=== PATIENT | female | born 1980 | race Caucasian/White ===

== ENCOUNTER 2019-12-14 19:00 | Outpatient (CLI) | payer OTHER | END 2019-12-14 19:01 | disposition home or self-care (01) | LOC: SLEEPLAB 19:00 | PROVIDERS: ATTEND Student in an Organized Health Care Education/Training Program | DX: G47.33 Obstructive sleep apnea (adult) (pediatric) (principal); R53.83 Other fatigue; G47.9 Sleep disorder, unspecified; K21.9 Gastro-esophageal reflux disease without esophagitis; R06.83 Snoring; G47.00 Insomnia, unspecified; G47.10 Hypersomnia, unspecified | CPT/HCPCS: 95810 ==

== ENCOUNTER 2020-02-01 19:00 | Outpatient (CLI) | payer OTHER | END 2020-02-01 19:01 | disposition home or self-care (01) | LOC: SLEEPLAB 19:00 | PROVIDERS: ATTEND Student in an Organized Health Care Education/Training Program | DX: G47.33 Obstructive sleep apnea (adult) (pediatric) (principal); G47.9 Sleep disorder, unspecified; R53.83 Other fatigue; R51.9 Headache, unspecified; R06.83 Snoring; K21.9 Gastro-esophageal reflux disease without esophagitis; G47.10 Hypersomnia, unspecified; E66.9 Obesity, unspecified; Z68.33 Body mass index [BMI] 33.0-33.9, adult | CPT/HCPCS: 95811 ==

== ENCOUNTER 2021-01-06 08:01 | Inpatient (IN) | payer OTHER ==
[2021-01-06 08:54] LABS: #Basophils 0.1 thou/uL (0.0-0.2); #Lymphocytes 1.4 thou/uL (1.20-3.40); #Monocytes 0.9 thou/uL (0.11-0.59); #Neutrophils 6.9 thou/uL (1.40-6.50); %Eosinophils 0.2 % (0.0-10.0); %Lymphocytes 14.8 % (21.0-51.0); %Monocytes 9.2 % (0.0-10.0); %Neutrophils 74.9 % (42.0-75.0); Hemoglobin 13.7 g/dL (12.0-16.0); Mean Corpuscular HGB CONC 33.7 g/dL (32.0-36.0); Mean Corpuscular Hemoglobin 31.2 pg (27.0-31.0); Mean Corpuscular Volume 92.4 fL (78.0-98.0); Mean Platelet Volume 7.9 fL (7.4-10.4); Platelet Count 244 thou/uL (130-400); RBC Distribution Width 12.4 % (11.5-14.5); Red Blood Cell (RBC) Count 4.39 mill/uL (4.20-5.40); White Blood Cell (WBC) Count 9.3 thou/uL (4.8-10.8)
[2021-01-06] MEDS ORDERED: Ketorolac Tromethamine 30 MG/ML VIAL ONE (09:09)
[2021-01-06] MEDS ORDERED: Acetaminophen 500 MG TAB ONE (09:09)
[2021-01-06 09:17] LABS: ALT (SGPT) 29 U/L (8-55); AST (SGOT) 36 U/L (5-34); Albumin 3.7 g/dL (3.5-5.0); Alkaline Phosphatase 95 U/L (40-110); Anion Gap 17 mmol/L (10-20); BUN (Urea Nitrogen) 10 mg/dL (7.0-18.7); Bilirubin, Total 0.6 mg/dL (0.2-1.2); Calc. Creatinine Clearance 0 mL/min (70-130); Calcium 8.6 mg/dL (7.8-10.44); Carbon Dioxide 20 mmol/L (22-29); Chloride 93 mmol/L (98-107); Globulin 3.7 g/dL (2.4-3.5); Glucose 115 mg/dL (70-105); Protein, Total 7.4 g/dL (6.0-8.3); Sodium 126 mmol/L (136-145)
[2021-01-06] MEDS ORDERED: Iopamidol-370 76% 500 ML 1 ML ONE (09:32)
[2021-01-06 09:37] LABS: CKMB 1.7 ng/mL (0-6.6)
[2021-01-06] MEDS ORDERED: Sodium Chloride 0.9% 0 ML ONE (10:30)
[2021-01-06] MEDS ORDERED: Azithromycin 500 MG VIAL ONE (10:30)
[2021-01-06 11:07] LABS: Bacteria/HPF None Seen HPF (None Seen); Bilirubin Negative (Negative); Blood, Urine 1+ (Negative); Clarity Turbid (Clear); Glucose, Urine (Dipstick) Normal (Negative); Ketone, Urine 20 mg/dL (Negative); Leukocyte Negative Leu/uL (Negative); Mucous/LPF 1+ LPF (<2+); Nitrite Negative (Negative); Protein, Urine (Dipstick) 200 mg/dL (Neg-Trace); RBC/HPF 0-3 HPF (0-3); Specific Gravity, Urine 1.032 (1.002-1.036); Squamous Epithelial 0-3 HPF (0-3); Urobilinogen 3 mg/dL (Less than 2)
[2021-01-06 13:15] LABS: SARS-CoV-2 NAA Rapid Test Not Detected (NotDetected)
[2021-01-06] MEDS ORDERED: Senokot S 8.6-50 MG TAB PO PRN (13:17)
[2021-01-06] MEDS ORDERED: Bisacodyl 5 MG TAB PO PRN (13:17)
[2021-01-06] MEDS ORDERED: Aspirin 325 MG TAB PO SCH (13:30)
[2021-01-06] MEDS ORDERED: Sodium Chloride 0.9% 1,000 ML IV SCH (13:30)
[2021-01-06 14:39] LABS: Troponin I 0.026 ng/mL (< 0.028)
[2021-01-06] MEDS ORDERED: Acetaminophen 325 MG TAB ONE (15:45)
[2021-01-06 16:45] VITALS: BMI 32.7
[2021-01-06] MEDS: cefTRIAXone\\ROCEPHIN 1 GM in Sodium Chloride 0.9% 100 ML IVPB SCH (17:12)
[2021-01-06 17:34] LABS: Troponin I 0.039 ng/mL (< 0.028)
[2021-01-06 17:46] LABS: Anion Gap 17 mmol/L (10-20); BUN (Urea Nitrogen) 8 mg/dL (7.0-18.7); Calc. Creatinine Clearance 141 mL/min (70-130); Calcium 7.5 mg/dL (7.8-10.44); Carbon Dioxide 17 mmol/L (22-29); Chloride 98 mmol/L (98-107); Glucose 110 mg/dL (70-105); Potassium 3.4 mmol/L (3.5-5.1); Sodium 129 mmol/L (136-145)
[2021-01-06] MEDS: Acetaminophen 325 MG TAB PO PRN (20:36)
[2021-01-06] MEDS: Ondansetron PF 4 MG/2 ML Vial IVP PRN (20:36)
[2021-01-06] MEDS: Atorvastatin Calcium 40 MG TAB PO SCH (20:40)
[2021-01-07] MEDS: Melatonin 3 MG TAB PO PRN (01:34)
[2021-01-07] MEDS: Albuterol Sulfate 2.5 mg/3 ml Neb NEB PRN (02:54)
[2021-01-07] MEDS ORDERED: Calcium Carbonate 500 MG ChewTAB PO PRN (04:10)
[2021-01-07] MEDS: Acetaminophen 325 MG TAB PO PRN ×2 (04:36→14:24)
[2021-01-07 04:59] LABS: Hemoglobin 12.3 g/dL (12.0-16.0); Mean Corpuscular HGB CONC 33.5 g/dL (32.0-36.0); Mean Corpuscular Hemoglobin 30.9 pg (27.0-31.0); Mean Corpuscular Volume 92.3 fL (78.0-98.0); Platelet Count 237 thou/uL (130-400); RBC Distribution Width 12.7 % (11.5-14.5); Red Blood Cell (RBC) Count 3.98 mill/uL (4.20-5.40); White Blood Cell (WBC) Count 7.3 thou/uL (4.8-10.8)
[2021-01-07 05:00] LABS: Hemoglobin A1c 5.2 % (4.0-6.0)
[2021-01-07 05:06] LABS: ALT (SGPT) 25 U/L (8-55); AST (SGOT) 31 U/L (5-34); Alkaline Phosphatase 84 U/L (40-110); Anion Gap 14 mmol/L (10-20); BUN (Urea Nitrogen) 4 mg/dL (7.0-18.7); Bilirubin, Total 0.4 mg/dL (0.2-1.2); Calc. Creatinine Clearance 150 mL/min (70-130); Calcium 7.8 mg/dL (7.8-10.44); Carbon Dioxide 19 mmol/L (22-29); Cardiac Risk 4.7 (Less than 4.5); Chloride 101 mmol/L (98-107); Cholesterol 103 mg/dl (< 200 Desired); Globulin 2.9 g/dL (2.4-3.5); Glucose 126 mg/dL (70-105); HDL Cholesterol 22 mg/dL (>60 Neg Risk); LDL Cholesterol, Calculated 61 mg/dL; Potassium 3.7 mmol/L (3.5-5.1); Protein, Total 5.9 g/dL (6.0-8.3); Sodium 130 mmol/L (136-145); Triglycerides 101 mg/dL (Less than 150)
[2021-01-07 06:17] LABS: Band 18 % (5-11); Lymphocytes 13 % (21-51); MDiff Complete? YES; Monocytes 6 % (0-10); Neutrophil 63 % (42-75); Toxic Granulation SLIGHT; Vacuoles SLIGHT
[2021-01-07] MEDS ORDERED: Enoxaparin Sodium 40 MG/0.4 ML SYRINGE SC SCH (09:00)
[2021-01-07] MEDS: Aspirin Chewable 81 MG TAB PO SCH (09:08)
[2021-01-07] MEDS: Enoxaparin Sodium 40 MG/0.4 ML SYRINGE SC SCH (09:08)
[2021-01-07] MEDS: Azithromycin 500 MG in Sodium Chloride 0.9% 250 ML 250 ML IVPB SCH (11:31)
[2021-01-07] MEDS: cefTRIAXone\\ROCEPHIN 1 GM in Sodium Chloride 0.9% 100 ML IVPB SCH (14:24)
[2021-01-07] MEDS ORDERED: Loperamide HCl 2 MG CAP PO PRN (16:41)
[2021-01-07] MEDS: lamoTRIgine 100 MG TAB PO SCH (20:08)
[2021-01-07] MEDS: FLUoxetine HCl 20 MG CAP PO SCH (20:08)
[2021-01-07] MEDS: Atorvastatin Calcium 40 MG TAB PO SCH (20:09)
[2021-01-08 04:34] LABS: #Eosinphils 0.1 thou/uL (0.0-0.7); #Lymphocytes 1.3 thou/uL (1.20-3.40); #Monocytes 0.6 thou/uL (0.11-0.59); %Basophils 0.7 % (0.0-1.0); %Eosinophils 1.8 % (0.0-10.0); %Lymphocytes 25.2 % (21.0-51.0); %Monocytes 12.3 % (0.0-10.0); %Neutrophils 60.1 % (42.0-75.0); Hemoglobin 11.4 g/dL (12.0-16.0); Mean Corpuscular HGB CONC 32.7 g/dL (32.0-36.0); Mean Corpuscular Hemoglobin 30.2 pg (27.0-31.0); Mean Corpuscular Volume 92.3 fL (78.0-98.0); Mean Platelet Volume 7.7 fL (7.4-10.4); Platelet Count 288 thou/uL (130-400); RBC Distribution Width 12.6 % (11.5-14.5); Red Blood Cell (RBC) Count 3.79 mill/uL (4.20-5.40)
[2021-01-08 04:54] LABS: Anion Gap 10 mmol/L (10-20); BUN (Urea Nitrogen) 4 mg/dL (7.0-18.7); Calc. Creatinine Clearance 155 mL/min (70-130); Calcium 8.1 mg/dL (7.8-10.44); Carbon Dioxide 28 mmol/L (22-29); Chloride 100 mmol/L (98-107); Glucose 103 mg/dL (70-105); Potassium 3.6 mmol/L (3.5-5.1); Sodium 134 mmol/L (136-145)
[2021-01-08] MEDS: Aspirin Chewable 81 MG TAB PO SCH (09:06)
[2021-01-08] MEDS: Acetaminophen 325 MG TAB PO PRN ×2 (09:06→14:45)
[2021-01-08] MEDS: Enoxaparin Sodium 40 MG/0.4 ML SYRINGE SC SCH (09:06)
[2021-01-08] MEDS: Azithromycin 500 MG in Sodium Chloride 0.9% 250 ML 250 ML IVPB SCH (11:50)
[2021-01-08] MEDS: cefTRIAXone\\ROCEPHIN 1 GM in Sodium Chloride 0.9% 100 ML IVPB SCH (14:44)
[2021-01-08] MEDS: Atorvastatin Calcium 40 MG TAB PO SCH (21:31)
[2021-01-08] MEDS: lamoTRIgine 100 MG TAB PO SCH (21:31)
[2021-01-08] MEDS: FLUoxetine HCl 20 MG CAP PO SCH (21:31)
[2021-01-09] MEDS: Acetaminophen 325 MG TAB PO PRN ×3 (03:25→22:32)
[2021-01-09] MEDS: Enoxaparin Sodium 40 MG/0.4 ML SYRINGE SC SCH (09:23)
[2021-01-09] MEDS: Aspirin Chewable 81 MG TAB PO SCH (09:23)
[2021-01-09] MEDS: Atorvastatin Calcium 40 MG TAB PO SCH (22:31)
[2021-01-09] MEDS: FLUoxetine HCl 20 MG CAP PO SCH (22:31)
[2021-01-09] MEDS: lamoTRIgine 100 MG TAB PO SCH (22:32)
[2021-01-09] MEDS: Albuterol Sulfate 2.5 mg/3 ml Neb NEB PRN (23:40)
[2021-01-10] MEDS ORDERED: Ibuprofen 100 MG/5 ML UDCUP PO SCH (08:45)
[2021-01-10] MEDS ORDERED: Ibuprofen 200 MG TAB PO SCH (09:00)
[2021-01-10] MEDS: Enoxaparin Sodium 40 MG/0.4 ML SYRINGE SC SCH (10:31)
[2021-01-10] MEDS: Aspirin Chewable 81 MG TAB PO SCH (10:32)
[2021-01-10] MEDS: Azithromycin 500 MG in Sodium Chloride 0.9% 250 ML 250 ML IVPB SCH ×2 (10:35→11:38)
[2021-01-10] MEDS: cefTRIAXone\\ROCEPHIN 1 GM in Sodium Chloride 0.9% 100 ML IVPB SCH ×2 (10:36→15:39)
[2021-01-10] MEDS: Atorvastatin Calcium 40 MG TAB PO SCH (21:04)
[2021-01-10] MEDS: FLUoxetine HCl 20 MG CAP PO SCH (21:04)
[2021-01-10] MEDS: Acetaminophen 325 MG TAB PO PRN (21:04)
[2021-01-10] MEDS: lamoTRIgine 100 MG TAB PO SCH (21:05)
[2021-01-11] MEDS: Enoxaparin Sodium 40 MG/0.4 ML SYRINGE SC SCH (09:43)
[2021-01-11] MEDS: Aspirin Chewable 81 MG TAB PO SCH (09:43)
[2021-01-11] MEDS: Azithromycin 500 MG in Sodium Chloride 0.9% 250 ML 250 ML IVPB SCH (09:43)
[2021-01-11] MEDS: Acetaminophen 325 MG TAB PO PRN ×2 (09:48→20:20)
[2021-01-11] MEDS: cefTRIAXone\\ROCEPHIN 1 GM in Sodium Chloride 0.9% 100 ML IVPB SCH (13:16)
[2021-01-11] MEDS: Ondansetron PF 4 MG/2 ML Vial IVP PRN (17:06)
[2021-01-11] MEDS: Atorvastatin Calcium 40 MG TAB PO SCH (20:21)
[2021-01-11] MEDS: lamoTRIgine 100 MG TAB PO SCH (20:22)
[2021-01-11] MEDS: FLUoxetine HCl 20 MG CAP PO SCH (20:22)
[2021-01-11] MEDS: Melatonin 3 MG TAB PO PRN (20:24)
[2021-01-12] MEDS: Enoxaparin Sodium 40 MG/0.4 ML SYRINGE SC SCH (09:56)
[2021-01-12] MEDS: Aspirin Chewable 81 MG TAB PO SCH (09:56)
[2021-01-12] MEDS: Acetaminophen 325 MG TAB PO PRN ×2 (10:00→19:14)
[2021-01-12] MEDS: Azithromycin 500 MG in Sodium Chloride 0.9% 250 ML 250 ML IVPB SCH (10:01)
[2021-01-12] MEDS: Ondansetron PF 4 MG/2 ML Vial IVP PRN (10:01)
[2021-01-12] MEDS: cefTRIAXone\\ROCEPHIN 1 GM in Sodium Chloride 0.9% 100 ML IVPB SCH (15:08)
[2021-01-12] MEDS: lamoTRIgine 100 MG TAB PO SCH (19:14)
[2021-01-12] MEDS: Atorvastatin Calcium 40 MG TAB PO SCH (19:14)
[2021-01-12] MEDS: FLUoxetine HCl 20 MG CAP PO SCH (19:15)
[2021-01-12 19:34] VITALS: BP 138/93; TEMP 97.9
== END 2021-01-12 21:18 | disposition home health service (06) | DRG 194 ==
LOC: ERS 08:01 → ERHOLD 12:25 → 2NO 16:19
PROVIDERS: ADMIT Internal Medicine; ATTEND Internal Medicine
DX: J18.9 Pneumonia, unspecified organism (principal); E22.2 Syndrome of inappropriate secretion of antidiuretic hormone; F33.9 Major depressive disorder, recurrent, unspecified; G47.33 Obstructive sleep apnea (adult) (pediatric); Z20.822 Contact with and (suspected) exposure to COVID-19; Z23 Encounter for immunization; J45.909 Unspecified asthma, uncomplicated; F14.10 Cocaine abuse, uncomplicated; F12.10 Cannabis abuse, uncomplicated; F10.10 Alcohol abuse, uncomplicated; F39 Unspecified mood [affective] disorder; F41.9 Anxiety disorder, unspecified; R79.89 Other specified abnormal findings of blood chemistry; E86.0 Dehydration; R09.02 Hypoxemia; E66.9 Obesity, unspecified; Z68.32 Body mass index [BMI] 32.0-32.9, adult; Z91.14 Patient's other noncompliance with medication regimen; Z88.0 Allergy status to penicillin; Z90.710 Acquired absence of both cervix and uterus; Z86.16 Personal history of COVID-19; Z87.01 Personal history of pneumonia (recurrent); Z79.899 Other long term (current) drug therapy
CPT/HCPCS: 0240U; 36415; 70450; 71045; 71275; 80048; 80053; 80061; 81003; 81015; 82553; 83036; 83880; 84484; 85025; 85379; 87040; 87086; 87324; 87449; 90471; 90732; 93005; 93306; 94640; 96365; 96366; 96375; G0009; J0456; J0696; J1650; J1885; J2405; J3490; J7050; J7611; Q9967

== ENCOUNTER 2022-04-23 13:24 | Emergency (ER) | payer OTHER ==
[~2022-04-23 13:24] MED LIST: Iopamidol 370 76% 100 ML VIAL ONE
[2022-04-23 13:58] LABS: #Basophils 0.1 thou/uL (0.0-0.2); #Eosinphils 0.3 thou/uL (0.0-0.7); #Lymphocytes 2.3 thou/uL (1.20-3.40); #Monocytes 1.1 thou/uL (0.11-0.59); #Neutrophils 8.4 thou/uL (1.40-6.50); %Basophils 0.5 % (0.0-1.0); %Eosinophils 2.4 % (0.0-10.0); %Lymphocytes 18.9 % (21.0-51.0); %Monocytes 9.3 % (0.0-10.0); %Neutrophils 68.9 % (42.0-75.0); Hemoglobin 15.4 g/dL (12.0-16.0); Mean Corpuscular HGB CONC 35.4 g/dL (32.0-36.0); Mean Corpuscular Hemoglobin 33.9 pg (27.0-31.0); Mean Corpuscular Volume 95.7 fl (78.0-98.0); Mean Platelet Volume 7.1 fL (7.4-10.4); Platelet Count 262 10x3/uL (130-400); RBC Distribution Width 11.9 % (11.5-14.5); Red Blood Cell (RBC) Count 4.54 mill/uL (4.20-5.40); White Blood Cell (WBC) Count 12.1 10x3/uL (4.8-10.8)
[2022-04-23 14:19] LABS: ALT (SGPT) 20 U/L (8-55); AST (SGOT) 17 U/L (5-34); Albumin 4.5 g/dL (3.5-5.0); Alkaline Phosphatase 61 U/L (40-110); Anion Gap 10 mmol/L (10-20); BUN (Urea Nitrogen) 6 mg/dL (7.0-18.7); Bilirubin, Total 0.8 mg/dL (0.2-1.2); Calc. Creatinine Clearance 0 mL/min (70-130); Calcium 9.8 mg/dL (7.8-10.44); Carbon Dioxide 27 mmol/L (22-29); Chloride 102 mmol/L (98-107); Estimated GFR 99; Globulin 3.5 g/dL (2.4-3.5); Glucose 83 mg/dL (70-105); Lipase 16 U/L (8-78); Sodium 135 mmol/L (136-145)
[2022-04-23 14:34] LABS: Bacteria/HPF 1+ HPF (None Seen); Bilirubin Negative (Negative); Blood, Urine Negative (Negative); Clarity Clear (Clear); Glucose, Urine (Dipstick) Normal (Negative); Ketone, Urine Negative (Negative); Leukocyte Negative Leu/uL (Negative); Nitrite Negative (Negative); Protein, Urine (Dipstick) Negative (Neg-Trace); RBC/HPF 0-3 HPF (0-3); Specific Gravity, Urine 1.003 (1.002-1.036); Squamous Epithelial 0-3 HPF (0-3); Urobilinogen Normal mg/dL (Less than 2); WBC/HPF 0-3 HPF (0-3); pH, Urine 6.5 (5.0-9.0)
[2022-04-23] MEDS ORDERED: Ketorolac Tromethamine 30 MG/ML VIAL ONE (17:24)
== END 2022-04-23 17:53 | disposition home or self-care (01) ==
LOC: ERS 13:24
DX: N39.0 Urinary tract infection, site not specified (principal)
CPT/HCPCS: 36415; 74177; 80053; 81001; 83690; 85025; 87086; 96372; J1885